=== PATIENT | male | born 1985 ===

== ENCOUNTER 2021-06-15 03:09 | Emergency (ER) | payer SELFPAY ==
[2021-06-15] MEDS ORDERED: ACETAMINOPHEN 500 MG TAB ONE (03:12)
[2021-06-15 03:14] VITALS: BP 152/92
[2021-06-15] MEDS ORDERED: ACETAMINOPHEN 500 MG TAB PO ONE (03:15)
== END 2021-06-15 06:32 ==
LOC: ED 03:09
DX: M54.2 Cervicalgia (principal); Z53.21 Procedure and treatment not carried out due to patient leaving prior to being seen by health care provider